=== PATIENT | female | born 1965 | race Caucasian/White ===

== ENCOUNTER 2018-02-02 09:26 | Day surgery (SDC) | payer BC ==
[2018-02-02 09:59] VITALS: BMI 21.9
[2018-02-02 10:13] VITALS: TEMP 97.5
[2018-02-02] MEDS ORDERED: Propofol 10 mg/ml Inj (20 ML) ONE ×3 (11:50→12:23)
[2018-02-02 12:31] VITALS: O2SAT 100
[2018-02-02] MEDS ORDERED: Phenylephrine 10 mg/ml Inj ONE (12:42)
[2018-02-02 13:20] VITALS: BP 109/67; PULSE 70; RESP 17
== END 2018-02-02 13:11 | disposition home or self-care (01) ==
LOC: C.ENDO 09:26
PROVIDERS: ATTEND Internal Medicine Gastroenterology
DX: Z12.11 Encounter for screening for malignant neoplasm of colon (principal); K64.4 Residual hemorrhoidal skin tags
CPT/HCPCS: 45378; J2001; J2370; J2704; J3010